=== PATIENT | female | born 1980 | race Hispanic/Latino ===

== ENCOUNTER 2019-09-11 17:37 | Emergency (ER) | payer OTHER ==
[~2019-09-11] VITALS: Ht 160 cm; Wt 90.7 kg
[2019-09-11] MEDS ORDERED: NEURONTIN300 MG PO (18:49)
[2019-09-11] MEDS ORDERED: SEROQUEL300 MG PO (18:49)
[2019-09-11] MEDS ORDERED: PROPRANOLOL HCL10 MG PO (18:50)
[2019-09-11] MEDS ORDERED: LISINOPRIL10 MG PO (18:50)
[2019-09-11] MEDS ORDERED: ATORVASTATIN CA80 MG PO (18:51)
== END 2019-09-11 19:23 | disposition home or self-care (01) ==
LOC: ED 17:37
DX: R29.898 Other symptoms and signs involving the musculoskeletal system (principal); I10 Essential (primary) hypertension; Z86.73 Personal history of transient ischemic attack (TIA), and cerebral infarction without residual deficits; Z79.899 Other long term (current) drug therapy
CPT/HCPCS: 99284